=== PATIENT | female | born 1980 | race Asian ===

== ENCOUNTER 2020-03-21 23:21 | Inpatient (IN) | payer OTHER ==
[~2020-03-21] VITALS: Ht 167.6 cm; Wt 89.8 kg
[2020-03-22 00:23] LABS: BASOPHIL % 0.6 % (0-2); PLATELET COUNT 346 x10^3mcL (130-400); RED CELL DISTRIBUTION WIDTH 13.9 % (11.5-14.5)
[2020-03-22 00:38] VITALS: Ht 167.6 cm; Wt 89.8 kg
[2020-03-22 00:49] LABS: CALCIUM 9.4 mg/dL (8.5-10.1); CARBON DIOXIDE 29.5 mmol/L (21-32); CHLORIDE SERUM 99 mmol/L (98-107); CREATININE SERUM 0.9 mg/dL (0.6-1.0); GFR1 > 60 mL/min; GLUCOSE SERUM 116 mg/dL (74-106); SODIUM SERUM 134 mmol/L (136-145)
[2020-03-22 00:56] LABS: ALBUMIN 3.6 g/dL (3.4-5.0); ALKALINE PHOSPHATASE 72 U/L (46-116); ALT/SGPT 59 U/L (14-59); AST/SGOT 54 U/L (15-37); LIPASE 117 IU/L (73-393); TOTAL PROTEIN, SERUM 7.6 g/dL (6.4-8.2)
[2020-03-22 04:21] LABS: CHOLESTEROL/HDL RATIO 2.9
[2020-03-22 04:52] LABS: C REACTIVE PROTEIN 3.1 mg/dL (<=0.9)
[2020-03-22 13:29] VITALS: BP 135/84
[2020-03-22 16:39] VITALS: BP 116/80
[2020-03-22 19:34] VITALS: BP 127/86
[2020-03-23 05:31] VITALS: BP 138/98
[2020-03-23 07:48] LABS: CALCIUM 8.4 mg/dL (8.5-10.1); CARBON DIOXIDE 24.8 mmol/L (21-32); CHLORIDE SERUM 99 mmol/L (98-107); CREATININE SERUM 0.5 mg/dL (0.6-1.0); GFR1 > 60 mL/min; GLUCOSE SERUM 83 mg/dL (74-106); MAGNESIUM 1.9 mg/dL (1.8-2.4); PHOSPHOROUS 2.5 mg/dL (2.5-4.9); POTASSIUM SERUM 3.6 mmol/L (3.5-5.1); SODIUM SERUM 134 mmol/L (136-145)
[2020-03-23 08:08] LABS: BASOPHIL % 0.4 % (0-2); PLATELET COUNT 311 x10^3mcL (130-400); RED CELL DISTRIBUTION WIDTH 14.1 % (11.5-14.5)
[2020-03-23 08:50] VITALS: BP 117/73
[2020-03-23 12:39] VITALS: BP 120/81
[2020-03-23 17:26] VITALS: BP 125/87
[2020-03-23 20:39] VITALS: BP 128/87
[2020-03-24 06:13] VITALS: BP 116/80
[2020-03-24 06:59] LABS: BASOPHIL % 0.3 % (0-2); PLATELET COUNT 313 x10^3mcL (130-400); RED CELL DISTRIBUTION WIDTH 13.6 % (11.5-14.5)
[2020-03-24 07:23] LABS: CALCIUM 8.4 mg/dL (8.5-10.1); CARBON DIOXIDE 27.3 mmol/L (21-32); CHLORIDE SERUM 100 mmol/L (98-107); CREATININE SERUM 0.5 mg/dL (0.6-1.0); GFR1 > 60 mL/min; GLUCOSE SERUM 107 mg/dL (74-106); MAGNESIUM 1.8 mg/dL (1.8-2.4); PHOSPHOROUS 2.6 mg/dL (2.5-4.9); POTASSIUM SERUM 3.4 mmol/L (3.5-5.1); SODIUM SERUM 134 mmol/L (136-145)
[2020-03-24 08:25] VITALS: BP 125/80
[2020-03-24 12:57] VITALS: BP 114/82
[2020-03-24 16:42] VITALS: BP 135/84
[2020-03-24 22:29] VITALS: BP 131/90
[2020-03-25 06:46] VITALS: BP 122/80
[2020-03-25 08:26] VITALS: BP 132/92
[2020-03-25 12:20] VITALS: BP 122/83
[2020-03-25 16:19] VITALS: BP 140/88
[2020-03-25 19:31] VITALS: BP 139/92
[2020-03-26 04:59] VITALS: BP 127/91
[2020-03-26 07:54] VITALS: BP 127/91
[2020-03-26 17:01] VITALS: BP 125/94
[2020-03-26] MEDS ORDERED: IPRATROPIUM BROM3 M2 HHN (17:26)
[2020-03-26] MEDS ORDERED: METHOCARBAMOL500 MG PO (17:27)
[2020-03-26] MEDS ORDERED: DIL2I IV (17:27)
[2020-03-26] MEDS ORDERED: MOR4I IV (17:27)
[2020-03-26] MEDS ORDERED: TYL325 PO (17:28)
[2020-03-26] MEDS ORDERED: DEC4I IV (17:29)
[2020-03-26 17:55] VITALS: BP 125/94
== END 2020-03-26 19:34 | disposition short-term general hospital (02) | DRG 542 ==
LOC: ED 23:21 → DU 03-22 03:23
PROVIDERS: Student in an Organized Health Care Education/Training Program; ADMIT Student in an Organized Health Care Education/Training Program; ATTEND Student in an Organized Health Care Education/Training Program
DX: M48.56XA Collapsed vertebra, not elsewhere classified, lumbar region, initial encounter for fracture (principal); J18.9 Pneumonia, unspecified organism; I31.3 Pericardial effusion (noninflammatory); E87.1 Hypo-osmolality and hyponatremia; Z88.8 Allergy status to other drugs, medicaments and biological substances; R73.9 Hyperglycemia, unspecified; Z20.828 Contact with and (suspected) exposure to other viral communicable diseases
CPT/HCPCS: G0378; J0456; J0696; J1100; J1170; J2270; J2405; J7030; J7050; Q9967; U0003-CS